=== PATIENT | female | born 1970 | race Caucasian/White ===

== ENCOUNTER 2018-12-17 12:43 | Outpatient (CLI) | payer OTHER ==
--- NOTE | 2018-12-17 14:08 | RAD ---
3 VIEWS LEFT MIDDLE FINGER: Date: 12/17/18 COMPARISON: None. HISTORY: Injury, trauma, pain. FINDINGS: There is joint space narrowing involving the distal interphalangeal joint. There is abnormal contour of the cortex involving the dorsal base of the third distal phalanx suggesting fracture. The fracture line is not well seen. Perhaps this is a healed fracture. This is at the insertion of the extensor t endon mechanism. There is mild soft tissue swelling centered at the third proximal interphalangeal joint. IMPRESSION: Contour irregularity involving the dorsal base of the third distal phalanx. Given history of trauma i august, this is felt to represent a fracture with interval callus formation at the insertion of the e xtensor mechanism. There is significant secondary degenerative change. Orthopedic consultation is gómez mcnulty. POS: OFF
== END 2018-12-17 12:44 | disposition home or self-care (01) ==
LOC: BICRAD 12:43
PROVIDERS: ATTEND Family Medicine
DX: M79.645 Pain in left finger(s) (principal); S62.633D Displaced fracture of distal phalanx of left middle finger, subsequent encounter for fracture with routine healing; M19.242 Secondary osteoarthritis, left hand

== ENCOUNTER 2019-02-09 14:59 | Outpatient (CLI) | payer OTHER ==
--- NOTE | 2019-02-09 16:50 | MMO ---
Bilateral MAMMO Bilat Screen [facility]. CLINICAL HISTORY: Patient is 48 years old and is seen for screening. The patient has the following family history of breast cancer: maternal grandmother and mother, at age 70, malignant (generic). The patient has no personal history of cancer. VIEWS: The views performed were: bilateral craniocaudal with tomosynthesis; bilateral mediolateral oblique with tomosynthesis; and bilateral exaggerated craniocaudal. FILMS COMPARED: The present examination has been compared to prior imaging studies performed at [facility] on 07/15/2007, 10/25/2014 and 10/29/2015, and at [facility] on 08/11/2011. This study has been interpreted with the assistance of computer-aided detection. MAMMOGRAM FINDINGS: The breasts are heterogeneously dense, which could obscure a lesion on mammography. There are no suspicious masses, suspicious calcifications, or new areas of architectural distortion. IMPRESSION: THERE IS NO MAMMOGRAPHIC EVIDENCE OF MALIGNANCY. A ROUTINE FOLLOW-UP MAMMOGRAM IN 1 YEAR IS RECOMMENDED. THE RESULTS OF THIS EXAM WERE SENT TO THE PATIENT. ACR BI-RADS Category 1 - Negative MAMMOGRAPHY NOTE: 1. A negative mammogram report should not delay a biopsy if a dominant of clinically suspicious mass is present. 2. Approximately 10% to 15% of breast cancers are not detected by mammography. 3. Adenosis and dense breasts may obscure an underlying neoplasm. Reported by: BLAIR HANDLEY MD Electonically Signed: [id number]
== END 2019-02-09 15:00 | disposition home or self-care (01) ==
LOC: BICMAMMO 14:59
PROVIDERS: ATTEND Obstetrics & Gynecology
DX: Z12.31 Encounter for screening mammogram for malignant neoplasm of breast (principal); Z80.3 Family history of malignant neoplasm of breast
CPT/HCPCS: 77063; 77067